=== PATIENT | male | born 1970 | race Caucasian/White ===

== ENCOUNTER 2020-04-30 07:58 | Emergency (ER) | payer OTHER ==
[~2020-04-30] VITALS: Ht 170.2 cm; Wt 81.8 kg
[2020-04-30] MEDS ORDERED: LOSA-30 PO (07:59)
[2020-04-30 08:01] VITALS: BP 152/85
== END 2020-04-30 09:22 | disposition home or self-care (01) ==
LOC: EMS 08:03
DX: I10 Essential (primary) hypertension (principal); Z20.822 Contact with and (suspected) exposure to COVID-19
CPT/HCPCS: 99283; U0003